=== PATIENT | male | born 1970 | race Two or more races ===

== ENCOUNTER 2024-09-03 20:31 | Emergency (ER) | payer MEDICAID, OTHER ==
[~2024-09-03] VITALS: Ht 167.6 cm; Wt 72.7 kg
--- NOTE | 2024-09-03 21:03 | ED.PDOC ---
History of Present Illness HPI Comments 54 y.o male presents to the ED for a chief complaint of a sore throat associated with generalized headache, sweats and back soreness that started this morning. Patient was seen at a clinic earlier today but is unsure of his results there or what they did for him. Patient took and Ibuprofen earlier today but had no pain relief. He denies any chest pain, SOB, fever, chills, nausea or vomiting. Chief Complaint: Sore Throat Time Seen by MD: 20:56 Reviewed Notes: Nurses Notes, Medications, Allergies Allergies: Coded Allergies: NO KNOWN ALLERGIES (Unverified , 09/03/24) Information Source: Patient Mode of Arrival: Ambulatory Severity: Moderate Timing: Hours Duration: Since onset Prehospital treatment: None Past Medical History PAST MEDICAL HISTORY: Denies Surgical History: Denies all surgeries Family History Family History: Reviewed,noncontributory to illness, No family hx of Cancer, No family hx of DM, No family hx of Heart stuart, No family hx of HTN, No family hx ofKidney stuart, No family hx of Liver stuart, No family hx of Lung stuart, No family hx of Stroke Social History Smoker: Non-Smoker Alcohol: Denies ETOH Use Drugs: Denies Drug Use Lives In: Home Constitutional: reports: sweats; denies: chills, diaphoresis, fatigue, fever, malaise, weakness, others EENTM: reports: throat pain, throat swelling; denies: blurred vision, double vision, ear bleeding, ear discharge, ear drainage, ear pain, ear ringing, eye pain, eye redness, hearing loss, mouth pain, mouth swelling, nasal discharge, nose bleeding, nose congestion, nose pain, photophobia, tearing, voice changes, others Respiratory: denies: cough, hemoptysis, orthopnea, SOB at rest, shortness of breath, SOB with excertion, stridor, wheezing, others Cardiovascular: denies: chest pain, dizzy spells, diaphoresis, Dyspnea on exe rtion, edema, irregular heart beat, left arm pain, lightheadedness, palpitations, PND, syncope, others Gastrointestinal: denies: abdomen distended, abdominal pain, blood streaked bowels, constipated, diarrhea, dysphagia, difficulty swallowing, hematemesis, melena, nausea, poor appetite, poor fluid intake, rectal bleeding, rectal pain, vomiting, others Genitourinary: denies: burning, dysuria, flank pain, frequency, hematuria, incontinence, penile discharge, penile sore, pain, testicle pain, testicle swelling, urgency, others Neurological: denies: dizziness, fainting, headache, left sided numbness, left sided weakness, numbness, paresthesia, pre-existing deficit, right sided numbness, right sided weakness, seizure, speech problems, tingling, tremors, weakness, others Musculoskeletal: reports: back pain; denies: gout, joint pain, joint swelling, muscle pain, muscle stiffness, neck pain, others Integumetry: denies: bruises, change in color, change in hair/nails, dryness, laceration, lesions, lumps, rash, wounds, others Allergic/Immunocompromised: denies: Difficulty Healing, Frequent Infections, Hives, Itching, others Hematologic/Lymphatic: denies: anemia, blood clots, easy bleeding, easy bruising, swollen glands, others Endocrine: denies: excessive hunger, excessive sweating, excessive thirst, excessive urination, flushing, intolerance to cold, intolerance to heat, unexplained weight gain, unexplained weight loss, others Psychiatric: denies: anxiety, bipolar disorder, depression, hopeless, panic disorder, schizophrenia, sleepless, suicidal, others All Other Systems: Reviewed and Negative Physical Exam General Appearance: Moderate Distress ([id number] distress due to throat pain and anxiety related concerns.), Normal HEENT: Normal ENT Inspection, Pharyngeal Erythema (Mildly beefy oropharynx with mild bilateral tonsillar pillar involvement. No definitive exudate noted. Airway is patent.), TMs Normal Neck: Full Range of Motion, Non-Tender, Normal, Normal Inspection Respiratory: Chest Non-Tender, Lungs Clear, No Accessory Muscle Use, No Respiratory Distress, Normal Breath Sounds Cardiovascular: No Edema, No JVD, No Murmur, No Gallop, Normal Peripheral Pulses, Regular Rate/Rhythm Breast Exam: Deferred Gastrointestinal: No Organomegaly, Non Tender, No Pulsatile Mass, Normal Bowel Sounds, Soft Genitalia: Deferred Pelvic: Deferred Rectal: Deferred Extremities: No calf tenderness, Normal capillary refill, Normal inspection, Normal range of motion, Non-tender, No pedal edema Musculoskeletal : Location: Bilateral Extremity Location: Back Apperance: Normal Neurologic: Alert, No Motor Deficits, Normal Mood, No Sensory Deficits, Other (Mild anxiety) Cerebellar Function: Normal Reflexes: Normal Skin: Dry, Normal Color, Warm Lymphatic: No Adenopathy Was a procedure done? Was a procedure done?: No Differential Dx Considerations may include: viral pharyngitis, Influenza, bacterial pharyngitis , allergic rhinitis, postnasal drip, dry air irritation, Anxiety X-Ray, Labs, Meds, VS Vital Signs Date Time Temp Pulse Resp B/P (MAP) Pulse Ox O2 Delivery O2 Flow Rate FiO2 09/03/24 20:44 98.6 78 20 97/56 (70) 97 Lab Test 09/03/24 20:45 Range/Units Influenza Type A Antigen Negative Negative Influenza Type B Antigen Negative Negative SARS-CoV-2 Antigen (Rapid) Negative NEGATIVE Group A Streptococcus Rapid Negative X-Ray, Labs, Meds, VS Comment All studies performed the ED were evaluated by me personally. Swabs studies were unremarkable for any acute findings. Patient appears to have a viral pharyngitis. Advised patient utilize medication as needed for symptomatic relief as well as good hydration and healthy nutrition. Advised patient that he should follow up with his primary care provider for discussions related to anxiety management if he continues to suffer from anxiety events. Time of 1ST Reevaluation: 22:48 Reevaluation 1ST: Improved Consultation: PCP, Psychiatry Patient Education/Counseling: Diagnosis, Treatment, Prognosis Family Education/Counseling: Diagnosis, Treatment, No Family Present Departure 1 Departure Time of Disposition: 22:48 Impression: Primary Impression: Viral pharyngitis Disposition: HOME / SELF CARE / HOMELESS Condition: Stable Additional Instructions: Advised patient utilize medication as needed for symptomatic pain relief. Patient should follow up with his primary care provider for discussions related to his anxiety events if they continue. e-Prescriptions Acetaminophen (Acetaminophen) 500 Mg Tab 500 MG PO Q4HP PRN, #30 TAB Prov: FERCHO BADILLO PAC 09/03/24 Ibuprofen (Ibuprofen) 600 Mg Tab 1 TAB PO Q6HP PRN, #20 TAB Prov: FERCHO BADILLO PAC 09/03/24 Discharged With: Self, Friend Critical Care Note Critical Care Time?: No Stability Stability form required: No I personally scribed for FERCHO BADILLO PAC ([email or web address]) on 09/03/24 at 21:03. Electronically submitted by Diamante Syed ([place] [facility]). FERCHO BADILLO PAC Sep 03, 2024 21:03
[2024-09-03 21:45] LABS: COVID19 ANTIGEN SOFIA FIA NEGATIVE (NEGATIVE); Rapid Strep A Screen-Throat Negative
[2024-09-03 21:49] LABS: Rapid Influenza A Negative (Negative); Rapid Influenza B Negative (Negative)
[2024-09-03] MEDS ORDERED: ACET500T58 PO (22:49)
[2024-09-03] MEDS ORDERED: IBUP-1454 PO (22:49)
[2024-09-03 23:53] VITALS: BP 104/45; PULSE 69; RESP 18; TEMP 98.5; O2SAT 98
[2024-09-04] MEDS: DexAMETHasone SOD PHOS 10MG/1ML VIAL INJ IM ONE (00:16)
[2024-09-04] MEDS: KETOROLAC TROMETH 60MG/2ML VIAL IM ONE (00:16)
[2024-09-04] MEDS: ALPRAZolam 0.5 MG TAB PO ONE (00:21)
== END 2024-09-04 00:54 | disposition home or self-care (01) ==
LOC: ER 20:31
DX: J02.8 Acute pharyngitis due to other specified organisms (principal); B97.89 Other viral agents as the cause of diseases classified elsewhere; Z20.822 Contact with and (suspected) exposure to COVID-19
CPT/HCPCS: 36415; 87070; 87426; 87804; 87880; 96372; 99284; J1100; J1885